=== PATIENT | male | born 1950 | race Two or more races ===

== ENCOUNTER → 2020-12-11 | Outpatient (CLI) | payer OTHER | END | disposition home or self-care (01) | LOC: PPH VACUNA 15:00 | PROVIDERS: ATTEND Emergency Medicine Pediatric Emergency Medicine | DX: Z23 Encounter for immunization (principal) ==

== ENCOUNTER 2021-01-01 15:52 | Outpatient (CLI) | payer OTHER | END 2021-01-01 15:58 | disposition home or self-care (01) | LOC: PPH VACUNA 15:52 | PROVIDERS: ATTEND Emergency Medicine Pediatric Emergency Medicine | DX: Z23 Encounter for immunization (principal) ==

== ENCOUNTER 2021-06-12 09:04 | Outpatient (CLI) | payer OTHER | END 2021-06-12 09:10 | disposition home or self-care (01) | LOC: LAB 09:04 | PROVIDERS: ATTEND Internal Medicine Hematology & Oncology | DX: D61.818 Other pancytopenia (principal); D72.819 Decreased white blood cell count, unspecified; D64.89 Other specified anemias; D68.8 Other specified coagulation defects; D69.49 Other primary thrombocytopenia ==

== ENCOUNTER → 2021-07-18 08:35 | Outpatient (CLI) | payer OTHER | END | disposition home or self-care (01) | LOC: LAB 08:35 | PROVIDERS: ATTEND Internal Medicine Hematology & Oncology | DX: D64.89 Other specified anemias (principal); D61.818 Other pancytopenia; D68.8 Other specified coagulation defects; D72.819 Decreased white blood cell count, unspecified; D69.49 Other primary thrombocytopenia ==

== ENCOUNTER 2021-11-09 12:35 | Emergency (ER) | payer OTHER ==
[~2021-11-09] VITALS: Ht 162.6 cm; Wt 49.0 kg
[2021-11-09] MEDS ORDERED: DORZOLAMIDE-TIM10 ML (12:49)
[2021-11-09] MEDS ORDERED: LEVOTHYROXINE25 MCG PO (12:49)
[2021-11-09] MEDS ORDERED: ALENDRONATE SOD70 MG PO (12:50)
[2021-11-09] MEDS ORDERED: SERTRALINE HCL100 MG PO (12:50)
[2021-11-09] MEDS ORDERED: QUETIAPINE FUM400 M1 (12:51)
[2021-11-09] MEDS ORDERED: LUMIGAN2.5 M1 (12:52)
[2021-11-09] MEDS ORDERED: FOLIC ACID1 MG PO (12:52)
[2021-11-09] MEDS ORDERED: IRO-PLEX LIQUI120 ML (12:53)
[2021-11-09] MEDS ORDERED: VITAMIN C WIT1000 MG PO (16:54)
[2021-11-09] MEDS ORDERED: MUCINEX DM ER1 EAC1 PO (16:54)
[2021-11-09] MEDS ORDERED: ACETAMINOPHEN650 M2 PO (16:54)
[2021-11-09] MEDS ORDERED: PROAIR RESPICL90 MCG IH (16:55)
[2021-11-09] MEDS ORDERED: MOXIFLOXACIN H400 MG PO (16:57)
== END 2021-11-09 17:24 | disposition home or self-care (01) ==
LOC: ER 12:35
DX: U07.1 COVID-19 (principal); J20.8 Acute bronchitis due to other specified organisms; I10 Essential (primary) hypertension